=== PATIENT | male | born 1940 | race African-American/Black ===

== ENCOUNTER 2021-10-26 14:06 | Emergency (ER) | payer OTHER ==
[~2021-10-26] VITALS: Ht 175.3 cm; Wt 95.3 kg
[2021-10-26] MEDS ORDERED: MEDROLDOSEPACK PO (16:11)
[2021-10-26] MEDS ORDERED: METHOCARBAMOL500 M2 PO (16:11)
[2021-10-26 16:18] VITALS: BP 188/90
== END 2021-10-26 16:18 | disposition home or self-care (01) ==
LOC: ER 14:06
DX: M51.36 Other intervertebral disc degeneration, lumbar region (principal); M54.50 Low back pain, unspecified; Z98.890 Other specified postprocedural states; Z91.018 Allergy to other foods